=== PATIENT | male | born 1980 | race Caucasian/White ===

== ENCOUNTER → 2018-10-21 | Outpatient (CLI) | payer BC ==
--- NOTE | 2018-10-22 10:11 | MR ---
EXAMINATION TYPE: MR shoulder LT wo con DATE OF EXAM: 10/21/2018 COMPARISON: Plain film 09/19/2018 HISTORY: Pain Left Shoulder, with Limited ROM X 4 Weeks, Outside films on PACS TECHNIQUE: Multiplanar, multisequence imaging of the left shoulder is performed without contrast. FINDINGS: Rotator Cuff: There is some abnormal increased signal involving the undersurface of the rotator cuff tendon at the level of the insertion of the infraspinatus which may represent a small partial thickne ss tear. At the insertion of the supraspinatus tendon there is also abnormal increased signal on T2-w eighted images compatible with partial-thickness tear, there is no retraction. Acromioclavicular Joint: Hypertrophic changes cause mass effect on the musculotendinous junction of s upraspinatus. Suspect a small distal acromial spur. There is some fluid signal subacromial subdeltoid bursa. Glenohumeral Joint: Maintained Labrum: There is some fluid signal at the inferior labrum, sagittal image 13 and 14, some increased s ignal along the superior labrum within the substance is noted which may be due to degenerative change . Cystic focus present at the level of the anterior labrum could represent a para labral cyst on axia l image 13. Biceps Tendon: The long head of biceps is in normal location within bicipital groove. Some fluid sign al present along the long head of biceps tendon Bone marrow signal: No focal abnormal marrow signal is appreciated. Other: No additional significant abnormality is appreciated. IMPRESSION: Suspect partial thickness tear of the rotator cuff tendon, tendinosis, correlate for possible impinge ment. Difficult to exclude a labral tear.
== END | disposition home or self-care (01) ==
LOC: RADMRIMAIN 17:47
PROVIDERS: ATTEND Family Medicine
DX: M25.512 Pain in left shoulder (principal)